=== PATIENT | female | born 1995 | race Caucasian/White ===

== ENCOUNTER 2016-08-27 14:31 | Outpatient (CLI) | payer OTHER ==
[~2016-08-27] VITALS: Ht 157.5 cm; Wt 64.4 kg
[~2016-08-27 14:31] MED LIST: ADDERALL30 MG PO; ALBUTEROL SULF8.5 GM IH; COLACE100 MG PO; FEOSOL325 MG PO; IBUPROFEN200 M1 PO; IBUPROFEN800 MG PO; IRON325 MG PO; KEFLEX500 MG PO; METRONIDAZOLE500 MG PO; MICONAZOLE NITR30 GM TP; MOBIC15 MG PO; NITROFURANTOIN100 M3 PO; OXAYDO5 MG PO; OXYCODONE HCL5 MG PO; PEPCID AC20 MG PO; PEPCID40 MG PO; PREDNISONE20 MG PO; PRENATAL TABLE1 EAC3 PO; ZOFRAN ODT4 MG PO; ZOFRAN4 MG PO
[2016-08-27 14:47] VITALS: BP 106/57
[2016-08-27] MEDS ORDERED: IRON325 MG PO (14:57)
[2016-08-27 16:38] LABS: ADD MIUA? YES; BILIRUBIN NEGATIVE; BLOOD NEGATIVE; COLOR YELLOW ((YELLOW)); GLUCOSE (STRIP) NEGATIVE; KETONES 5; LEUKOCYTES NEGATIVE; NITRITE NEGATIVE; PROTEIN (STRIP) NEGATIVE; SPECIFIC GRAVITY 1.019 (1.000-1.030)
[2016-08-27 16:44] VITALS: BP 95/52
[2016-08-27 16:48] LABS: EOSINOPHIL (%) 0.8 % (0-5); EOSINOPHIL COUNT 0.1 K/uL (0-0.3); HEMATOCRIT 24.4 % (36.0-46.0); IMMATURE GRANULOCYTE (%) 0.9 % (0.0-0.7); IMMATURE GRANULOCYTE COUNT 0.1 K/uL; INSTRUMENT ABS NEUTROPHIL CT 5.9 K/uL; LYMPHOCYTE COUNT 1.3 K/uL (1.0-2.8); MCH 24.1 PG (29.0-34.0); MCHC 30.7 G/DL (30.0-36.0); MCV 78.5 FL (83-99); MEAN PLAT.VOLUME 10.5 uM^3 (9.5-12.4); MONOCYTE (%) 5.7 % (3-12); MONOCYTE COUNT 0.5 K/uL (0-0.8); NEUTROPHIL (%) 75.3 % (45-76); NEUTROPHIL COUNT 5.9 K/uL (1.8-6.4); PLATELET COUNT 265 K/uL (156-360); RBC DIS.WIDTH-CV 13.4 % (11.8-14.6); RBC DIS.WIDTH-SD 38.5 % (39-53); RED BLOOD COUNT 3.11 M/uL (3.80-5.20); WHITE BLOOD COUNT 7.9 K/uL (4.1-10.2)
[2016-08-27 16:59] LABS: AMPHETAMINES QUANT VALUE 0 NG/ML; BARBITUATES QUANT VALUE 0 NG/ML; BENZODIAZEPINES QUANT VALUE 0 NG/ML; BENZODIAZEPINES, URINE SCREEN Negative (200 ng/mL); MARIJUANA QUANT VALUE 0 NG/ML; OPIATES QUANTITATIVE VALUE 0 NG/ML; PHENCYCLIDINE QUANT VALUE 0 NG/ML
[2016-08-27 17:02] LABS: CHLORIDE 109 mEq/L (99-109); POTASSIUM 3.5 mEq/L (3.7-5.4); SODIUM 139 mEq/L (136-147)
[2016-08-27 17:04] LABS: GLUCOSE 91 mg/dL (70-99)
[2016-08-27 17:04] LABS: BACTERIA 1+ /HPF; EPITHELIAL CELLS 2+ /HPF; HYALINE CASTS 0-5 /LPF; MUCUS 4+ /LPF; RED BLOOD CELLS 0-5 /HPF (0-5); UCUL ADDED? NO
[2016-08-27 17:06] LABS: ANION GAP 7 MEQ/L (2-14); TOTAL BILIRUBIN 0.3 mg/dL (0.0-1.0)
[2016-08-27 17:08] LABS: ALKALINE PHOSPHATASE 128 IU/L (3-129); GFR ESTIMATE (CALCULATED) > 59 mL/min/
[2016-08-27 17:09] LABS: UREA NITROGEN (BUN) 5 mg/dL (9-23)
[2016-08-27 18:14] VITALS: BP 93/54
[2016-08-27 18:21] LABS: FERRITIN 6 NG/ML (10-291)
[2016-08-27 19:16] LABS: IRON 22 MCG/DL (35-150)
[2016-08-27 19:33] VITALS: BP 110/59
== END 2016-08-27 19:55 | disposition home or self-care (01) ==
LOC: LDRP-OP 14:31 → 2WEST 14:32
PROVIDERS: Advanced Practice Midwife
DX: O47.03 False labor before 37 completed weeks of gestation, third trimester (principal); Z3A.35 35 weeks gestation of pregnancy
CPT/HCPCS: 59025; 80053; 80306 90; 81003; 82607; 82728; 82746; 83540; 84466; 85025; 87086; G0378; J7120

== ENCOUNTER 2016-09-21 06:13 | Inpatient (IN) | payer OTHER ==
[~2016-09-21] VITALS: Ht 157.5 cm; Wt 66.7 kg
[~2016-09-21 06:13] MED LIST changes: +TUMS500 MG PO
[2016-09-21 07:18] LABS: EOSINOPHIL (%) 0.8 % (0-5); EOSINOPHIL COUNT 0.1 K/uL (0-0.3); HEMATOCRIT 28.1 % (36.0-46.0); IMMATURE GRANULOCYTE (%) 1.3 % (0.0-0.7); IMMATURE GRANULOCYTE COUNT 0.1 K/uL; INSTRUMENT ABS NEUTROPHIL CT 6.2 K/uL; LYMPHOCYTE COUNT 1.7 K/uL (1.0-2.8); MCH 22.9 PG (29.0-34.0); MCHC 29.5 G/DL (30.0-36.0); MCV 77.6 FL (83-99); MEAN PLAT.VOLUME 10.4 uM^3 (9.5-12.4); MONOCYTE (%) 5.7 % (3-12); MONOCYTE COUNT 0.5 K/uL (0-0.8); NEUTROPHIL COUNT 6.2 K/uL (1.8-6.4); PLATELET COUNT 294 K/uL (156-360); RBC DIS.WIDTH-CV 15.2 % (11.8-14.6); RBC DIS.WIDTH-SD 42.3 % (39-53); RED BLOOD COUNT 3.62 M/uL (3.80-5.20); WHITE BLOOD COUNT 8.7 K/uL (4.1-10.2)
[2016-09-21 07:56] VITALS: BP 116/66
[2016-09-21 13:12] VITALS: BP 132/76
[2016-09-21 17:06] VITALS: BP 110/71
[2016-09-21 19:49] VITALS: BP 107/65
[2016-09-21 23:20] VITALS: BP 102/56
[2016-09-22 03:02] VITALS: BP 106/65
[2016-09-22 07:18] VITALS: BP 104/60
[2016-09-22 07:24] LABS: EOSINOPHIL (%) 0.3 % (0-5); HEMATOCRIT 28.9 % (36.0-46.0); IMMATURE GRANULOCYTE COUNT 0.1 K/uL; INSTRUMENT ABS NEUTROPHIL CT 9.4 K/uL; LYMPHOCYTE COUNT 1.9 K/uL (1.0-2.8); MCHC 29.4 G/DL (30.0-36.0); MCV 78.3 FL (83-99); MEAN PLAT.VOLUME 10.2 uM^3 (9.5-12.4); MONOCYTE (%) 5.4 % (3-12); MONOCYTE COUNT 0.7 K/uL (0-0.8); NEUTROPHIL (%) 77.2 % (45-76); NEUTROPHIL COUNT 9.4 K/uL (1.8-6.4); PLATELET COUNT 296 K/uL (156-360); RED BLOOD COUNT 3.69 M/uL (3.80-5.20); WHITE BLOOD COUNT 12.2 K/uL (4.1-10.2)
[2016-09-22] MEDS ORDERED: OXYCODONE HCL5 MG PO (08:11)
[2016-09-22] MEDS ORDERED: IBUPROFEN800 MG PO (08:11)
[2016-09-22 11:09] VITALS: BP 109/60
[2016-09-22 15:28] VITALS: BP 111/66
[2016-09-22 19:08] VITALS: BP 118/58
[2016-09-22 23:08] VITALS: BP 118/56
[2016-09-23 03:05] VITALS: BP 122/72
[2016-09-23 07:38] VITALS: BP 110/69
== END 2016-09-23 12:25 | disposition home or self-care (01) | DRG 766 ==
LOC: 2WEST 06:13 → 2SOUTH 08:35 → 2WEST 09-23 12:25
PROVIDERS: Obstetrics & Gynecology Obstetrics
DX: O34.211 Maternal care for low transverse scar from previous cesarean delivery (principal); O94 Sequelae of complication of pregnancy, childbirth, and the puerperium; O99.89 Other specified diseases and conditions complicating pregnancy, childbirth and the puerperium; N32.89 Other specified disorders of bladder; O99.02 Anemia complicating childbirth; D50.9 Iron deficiency anemia, unspecified; Z37.0 Single live birth; Z3A.39 39 weeks gestation of pregnancy
CPT/HCPCS: 85025; 86850; 86900; 86901; J0690; J1100; J1885; J2274; J2405; J2765; J3010; J7050; J7120

== ENCOUNTER 2017-01-07 20:19 | Emergency (ER) | payer OTHER ==
[~2017-01-07] VITALS: Ht 157.5 cm; Wt 60.6 kg
[2017-01-07 20:56] LABS: ADD MIUA? YES; BILIRUBIN NEGATIVE; BLOOD LARGE; COLOR YELLOW ((YELLOW)); GLUCOSE (STRIP) NEGATIVE; KETONES NEGATIVE; LEUKOCYTES NEGATIVE; NITRITE NEGATIVE; PROTEIN (STRIP) 30; SPECIFIC GRAVITY 1.025 (1.000-1.030)
[2017-01-07 21:03] LABS: BACTERIA RARE /HPF; EPITHELIAL CELLS 1+ /HPF; MUCUS 1+ /LPF; RED BLOOD CELLS 0-5 /HPF (0-5); UCUL ADDED? NO; WHITE BLOOD CELLS 0-5 /HPF (0-5)
[2017-01-07 21:12] LABS: HEMATOCRIT 39.5 % (36.0-46.0); MCH 26.4 PG (29.0-34.0); MCHC 31.9 G/DL (30.0-36.0); MCV 82.8 FL (83-99); MEAN PLAT.VOLUME 9.7 uM^3 (9.5-12.4); PLATELET COUNT 321 K/uL (156-360); RBC DIS.WIDTH-CV 13.5 % (11.8-14.6); RBC DIS.WIDTH-SD 40.2 % (39-53); RED BLOOD COUNT 4.77 M/uL (3.80-5.20); WHITE BLOOD COUNT 5.8 K/uL (4.1-10.2)
[2017-01-07 21:20] LABS: CHLORIDE 107 mEq/L (99-109); POTASSIUM 3.8 mEq/L (3.7-5.4); SODIUM 142 mEq/L (136-147)
[2017-01-07 21:22] LABS: GLUCOSE 93 mg/dL (70-99)
[2017-01-07 21:23] LABS: ANION GAP 12 MEQ/L (2-14)
[2017-01-07 21:24] LABS: TOTAL BILIRUBIN 0.4 mg/dL (0.0-1.0)
[2017-01-07 21:26] LABS: ALKALINE PHOSPHATASE 47 IU/L (3-129); GFR ESTIMATE (CALCULATED) > 59 mL/min/
[2017-01-07 21:27] LABS: UREA NITROGEN (BUN) 12 mg/dL (9-23)
[2017-01-07 21:35] LABS: QUANTITATIVE HCG < 4.0 MIU/ML
[2017-01-07] MEDS ORDERED: ANTIVERT25 MG PO (21:39)
[2017-01-07 22:13] VITALS: BP 111/74
== END 2017-01-07 22:13 | disposition home or self-care (01) ==
LOC: EME 20:19
PROVIDERS: Physician Assistant
DX: S60.031A Contusion of right middle finger without damage to nail, initial encounter (principal); W23.0XXA Caught, crushed, jammed, or pinched between moving objects, initial encounter; Y99.0 Civilian activity done for income or pay; N93.9 Abnormal uterine and vaginal bleeding, unspecified; Z87.891 Personal history of nicotine dependence
CPT/HCPCS: 73140; 80053; 81003; 84702; 85027; 99281; 99283

== ENCOUNTER 2017-03-05 02:48 | Emergency (ER) | payer OTHER ==
[~2017-03-05] VITALS: Ht 157.5 cm; Wt 57.9 kg
[~2017-03-05 02:48] MED LIST changes: +ANTIVERT25 MG PO
[2017-03-05] MEDS ORDERED: AMOXICILLIN875 MG PO (04:08)
[2017-03-05 04:18] VITALS: BP 105/69
== END 2017-03-05 04:18 | disposition home or self-care (01) ==
LOC: EME 02:48
DX: K02.9 Dental caries, unspecified (principal); Z33.1 Pregnant state, incidental; Z3A.01 Less than 8 weeks gestation of pregnancy
CPT/HCPCS: 99281; 99283

== ENCOUNTER 2017-10-04 22:49 | Inpatient (IN) | payer OTHER ==
[~2017-10-04] VITALS: Ht 157.5 cm; Wt 73.4 kg
[~2017-10-04 22:49] MED LIST changes: +AMOXICILLIN875 MG PO; +IRON325 M1 PO; +ZOFRAN8 MG PO
[2017-10-04 23:05] VITALS: BP 125/81
[2017-10-05] VITALS (8 sets, daily range): BP systolic 90–111; BP diastolic 46–73
[2017-10-05 00:24] LABS: BASOPHIL (%) 0.3 % (0-1); EOSINOPHIL (%) 1.5 % (0-5); EOSINOPHIL COUNT 0.2 K/uL (0-0.3); HEMATOCRIT 31.2 % (36.0-46.0); HEMOGLOBIN 9.8 G/DL (11.9-15.5); LYMPHOCYTE (%) 18.5 % (15-42); LYMPHOCYTE COUNT 2.1 K/uL (1.0-2.8); MCH 25.5 PG (29.0-34.0); MCHC 31.4 G/DL (30.0-36.0); MONOCYTE (%) 5.6 % (3-12); MONOCYTE COUNT 0.7 K/uL (0-0.8); NEUTROPHIL (%) 73.1 % (45-76); NEUTROPHIL COUNT 8.5 K/uL (1.8-6.4); PLATELET COUNT 305 K/uL (156-360); RBC DIS.WIDTH-CV 13.5 % (11.8-14.6); RBC DIS.WIDTH-SD 39.2 % (39-53); RED BLOOD COUNT 3.85 M/uL (3.80-5.20); WHITE BLOOD COUNT 11.6 K/uL (4.1-10.2)
[2017-10-06 02:41] VITALS: BP 87/42
[2017-10-06 06:56] VITALS: BP 94/55
[2017-10-06 07:51] LABS: BASOPHIL (%) 0.3 % (0-1); EOSINOPHIL (%) 0.8 % (0-5); EOSINOPHIL COUNT 0.1 K/uL (0-0.3); HEMATOCRIT 25.6 % (36.0-46.0); IMMATURE GRANULOCYTE (%) 0.7 % (0.0-0.7); LYMPHOCYTE (%) 14.6 % (15-42); LYMPHOCYTE COUNT 1.6 K/uL (1.0-2.8); MCH 24.7 PG (29.0-34.0); MCHC 30.1 G/DL (30.0-36.0); MCV 82.1 FL (83-99); MONOCYTE (%) 6.1 % (3-12); MONOCYTE COUNT 0.7 K/uL (0-0.8); NEUTROPHIL (%) 77.5 % (45-76); NEUTROPHIL COUNT 8.5 K/uL (1.8-6.4); PLATELET COUNT 242 K/uL (156-360); RBC DIS.WIDTH-CV 13.5 % (11.8-14.6); RBC DIS.WIDTH-SD 40.5 % (39-53); RED BLOOD COUNT 3.12 M/uL (3.80-5.20); WHITE BLOOD COUNT 10.9 K/uL (4.1-10.2)
[2017-10-06 07:52] LABS: HEMOGLOBIN 7.7 G/DL (11.9-15.5)
[2017-10-06 10:25] VITALS: BP 92/51
[2017-10-06 14:29] VITALS: BP 102/55
[2017-10-06 19:39] VITALS: BP 94/55
[2017-10-06 22:05] VITALS: BP 107/59
[2017-10-07] MEDS ORDERED: OXYCODONE HCL5 MG PO (10:50)
[2017-10-07] MEDS ORDERED: IBUPROFEN800 MG PO (10:50)
[2017-10-07] MEDS ORDERED: OXAYDO5 MG PO (10:55)
== END 2017-10-07 14:40 | disposition home or self-care (01) | DRG 765 ==
LOC: LDRP-OP → 2WEST 22:50
PROVIDERS: Obstetrics & Gynecology
DX: O34.211 Maternal care for low transverse scar from previous cesarean delivery (principal); O99.02 Anemia complicating childbirth; D62 Acute posthemorrhagic anemia; O69.81X0 Labor and delivery complicated by cord around neck, without compression, not applicable or unspecified; Z3A.37 37 weeks gestation of pregnancy; Z37.0 Single live birth; Z30.2 Encounter for sterilization; Z88.6 Allergy status to analgesic agent
CPT/HCPCS: 85025; 85027; 86850; 86900; 86901; 88302; G0378; J0690; J1100; J1170; J1885; J2274; J2405; J2590; J2765; J3010; J7120